=== PATIENT | female | born 1990 | race Hispanic/Latino ===

== ENCOUNTER 2023-01-18 10:38 | Emergency (ER) | payer OTHER ==
[~2023-01-18] VITALS: Ht 165.1 cm; Wt 88.9 kg
[2023-01-18 12:36] VITALS: BP 143/90
== END 2023-01-18 12:37 | disposition home or self-care (01) ==
LOC: FSED 10:48
DX: O13.3 Gestational [pregnancy-induced] hypertension without significant proteinuria, third trimester (principal); R51.9 Headache, unspecified
CPT/HCPCS: 99283